=== PATIENT | female | born 1960 | race Caucasian/White ===

== ENCOUNTER 2019-11-24 20:45 | Emergency (ER) | payer MEDICAID, SELFPAY ==
[2019-11-24 20:46] VITALS: BP 149/83; PULSE 81; RESP 18; TEMP 36.6; O2SAT 97; BMI 36.9
--- NOTE | 2019-11-24 20:50 | PC.NURSE ---
Radiology notified of xrays.
--- NOTE | 2019-11-24 21:09 | HMH.EDUTC ---
[facility] [place] Disposition Clinical Impression: De Quervain's disease (tenosynovitis) Disposition: Home, Self-Care Condition on Discharge: Good Instructions: De Quervain Tenosynovitis, Carpal Tunnel Syndrome, Ibuprofen, DI for De Quervain's Tenosynovitis Additional Instructions: Wear wrist brace as discussed in [facility] Follow up with Family doctor for further treatment and evaluation and further testing may need testing not available in [facility] to look at your nerves and tendons in wrist Return if needed Alternate heat and ice 20min every 2 hours may help with pain Straight to ER if any life threatening symptoms Call Family doctor and make appointment and follow up in the next 48-72 hours if no improvement or immediately if any worsening of symptoms May call [facility] tomorrow for official reading of xray Referrals: Provider,Referral, MD [Primary Care Provider] - As needed Forms: Work/School Release Time of Disposition: 22:14 Medical Decision Making - Rodolfo Inquiry Pt receiving controlled substance: No Rodlofo was queried for this patient: No Vital Signs: 11/24/19 20:46 11/24/19 22:05 Temperature 97.9 F 97.9 F Temperature Source Oral Oral Pulse Rate 81 Pulse Rate [Radial] 81 Respiratory Rate 18 18 Blood Pressure 149/83 H Blood Pressure [Right Arm] 149/83 H Blood Pressure Mean [Right Arm] 105 Blood Pressure Source Automatic Cuff Blood Pressure Source [Right Arm] Automatic Cuff Blood Pressure Position Sitting Blood Pressure Position [Right Arm] Sitting 02 Sat by Pulse Oximetry 97 Oxygen Delivery Method Room Air Room Air Orders (Tests/Meds): ORDERS Category Date Time Status XR hand RT 2V Stat Exams 11/24/19 21:12 Taken XR wrist RT min 3V Stat Exams 11/24/19 21:12 Taken - Radiology Data #1 Image(s): Hand Image Reviewed: Yes I reviewed the patient's radiology image Preliminary Findings: No Fracture Seen #2 Image(s): Wrist Image Reviewed: Yes I reviewed the patient's radiology image Preliminary Findings: No Fracture Seen Medical Decision Narrative: Discussed treatment with steriods and patient declined State that if wrist brace didnt help she would follow up with family doctor for MRI or CT scan for further examination [facility] [place] HPI - General Stated complaint: pain R arm,hand Time Seen by Provider: 11/24/19 21:09 Mode of Arrival: Ambulatory Source of Information: Patient Limitations: No Limitations Description of Symptoms (Recalled from Triage Doc. by RN): woke up yesterday and her right thumb and wrist was hurting as the day went on she began to have pain up her arm to her elbow. Decided she would take a nap today and when she woke up her arm had some swelling HEENT Symptoms (Recalled from RN notes): No Resp Symptoms (Recalled from RN notes): No Skin Symptoms (Recalled from RN notes): Yes MS Symptoms (Recalled from RN notes): Yes Functional Status (Recalled from RN notes): wnl - History of Present Illness Provider Complaint: Patient states that she has a history of Carpal Tunnel. 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 States that she woke up yesterday with pain in her right thumb area States that pain continued throughout the day when she would use her hand States that today when she woke she was having pain in her right thumb again and was going up into her wrist and shooting pain through her forearm into her elbow States that she laid down to take a nap and when she woke up her wrist looked swollen so she came in to get it checked Denies known injury - Related Data Home Medications Medication Instructions Recorded Confirmed Aspirin [Aspir 81] 81 mg PO DAILY 04/11/18 08/25/18 Furosemide [Lasix 20mg tab] 20 mg PO DAILY 04/11/18 08/25/18 Insulin Glargine,Hum.rec.anlog 46 unit SQ HS 04/11/18 08/25/18 [Lantus Insulin 100units/mL 10mL vial] Isosorbide Dinitrate 30 mg PO DAILY 04/11/18 08/25/18 Liraglutide [Victoza 2-Estrada] 1.8 mg SQ DAILY 04/11/18 08/25/18
--- NOTE | 2019-11-24 21:12 | XR_ITS ---
PROCEDURE: XR WRIST RT MIN 3V CLINICAL INDICATION: pain in hand and wrist COMPARISON: [id number] XR wrist LT min 3V from 04/11/2018 FINDINGS: No fracture, dislocation, lytic change, or blastic change evident. No significant degenerative change IMPRESSION: No acute findings. Dictated by: Rod Parker MD 11/25/2019 05:50 Electronically signed by Rod Parker MD in [place] 11/25/2019 05:50
--- NOTE | 2019-11-24 21:12 | XR_ITS ---
PROCEDURE: XR HAND RT MIN 3V CLINICAL INDICATION: pain in hand and wrist COMPARISON: [id number] XR hand LT min 3V from 04/11/2018 FINDINGS: No fracture or dislocation. No lytic or blastic change. There is normal mineralization. There is some decrease in the joint space with minimal osteophyte formation at the DIP of digits 2 through 5 and at the PIP of digit 3 as well as interphalangeal joint of the thumb. No bony erosive process evident. Other findings:None. IMPRESSION: Mild osteoarthritic changes Dictated by: Rod Parker MD 11/25/2019 05:51 Electronically signed by Rod Parker MD in [place] 11/25/2019 05:51
[2019-11-24 22:05] VITALS: BP 149/83; PULSE 81; RESP 18; TEMP 36.6; O2SAT 97
== END 2019-11-24 22:18 | disposition home or self-care (01) ==
PROVIDERS: Emergency Provider Nurse Practitioner
DX: M65.4 Radial styloid tenosynovitis [de Quervain] (principal); E11.9 Type 2 diabetes mellitus without complications; I10 Essential (primary) hypertension; Z79.899 Other long term (current) drug therapy
CPT/HCPCS: 73110; 73120; 73130; 99201

== ENCOUNTER 2020-10-25 16:23 | Emergency (ER) | payer OTHER, SELFPAY ==
[2020-10-25 16:35] VITALS: BP 134/78; PULSE 88; RESP 17; TEMP 36.7; O2SAT 98; BMI 36.5
--- NOTE | 2020-10-25 16:37 | XR_ITS ---
PROCEDURE INFORMATION: Exam: XR Left Foot Exam date and time: 10/25/2020 4:37 PM Age: 60 years old Clinical indication: Patient HX: Left foot pain. Patient states it feels like there are sticks in her left foot for a week. No known injury. TECHNIQUE: Imaging protocol: XR Left foot. Views: 3 or more views. COMPARISON: No relevant prior studies available. FINDINGS: Bones/joints: Normal anatomic alignment. There is no evidence of acutely displaced fractures. There is no evidence of dislocation. No aggressive osseous lesions. Prominent plantar calcaneal spur and prominent posterior calcaneal enthesophyte. Soft tissues: There is no significant soft tissue swelling. IMPRESSION: Negative for acute skeletal pathology.
[2020-10-25 16:40] VITALS: BP 134/78; PULSE 88; RESP 17; TEMP 36.7; O2SAT 98; BMI 36.6
--- NOTE | 2020-10-25 17:34 | HMH.EDUTC ---
[facility] [place] Impression: Foot pain, left Disposition: Home, Self-Care Condition on Discharge: Good Instructions: DI for Foot Pain Additional Instructions: Follow up with Family Doctor if no improvement or any worsening of symptoms Return if needed Straight to ER if any life threatening symptoms Follow up with Podiatry for further evaluation if needed Referrals: Mary Watson [Primary Care Provider] - As needed Bree Montez DPM [Staff Physician] - Time of Disposition: 17:57 Medical Decision Making - Rodolfo Inquiry Pt receiving controlled substance: No Rodolfo was queried for this patient: No Vital Signs: 10/25/20 16:35 10/25/20 16:40 Temperature 98.0 F 98.0 F Temperature Source Oral Oral Pulse Rate [Right] 88 88 Respiratory Rate 17 17 Blood Pressure [Right Arm] 134/78 134/78 Blood Pressure Mean [Right Arm] 96 96 Blood Pressure Source [Right Arm] Automatic Cuff Blood Pressure Position [Right Arm] Sitting 02 Sat by Pulse Oximetry 98 98 Oxygen Delivery Method Room Air Room Air - Lab Data Lab Results 10/25/20 17:21: Uric Acid 4.1 - Radiology Data #1 Image(s): Foot/Toes Image Reviewed: Yes I have reviewed radiologist's interpretation IMPRESSION: Negative for acute skeletal pathology. [facility] [place] - General Stated complaint: left foot pain Time Seen by Provider: 10/25/20 17:34 Mode of Arrival: Ambulatory Source of Information: Patient Limitations: No Limitations Description of Symptoms (Recalled from Triage Doc. by RN): PATIENT C/O PARESTHESIA IN HER LEFT FOOT FOR THE LAST 8 DAYS. PT DENOES INJURY. PT REPORTS HX OF NEUROPATHY. PT AMBULATORY IN TRIAGE. HEENT Symptoms (Recalled from RN notes): No Resp Symptoms (Recalled from RN notes): No Skin Symptoms (Recalled from RN notes): No MS Symptoms (Recalled from RN notes): Yes Functional Status (Recalled from RN notes): WNL - History of Present Illness Provider Complaint: Patient states that she felt like she was walking on sticks for the last couple of days on her left foot States that she thought it may have been her shoes so she took them off and walked barefoot and still felt that way States that she has not done anything that she is aware of to hurt it but has been having pain on the inside of her foot. States that she has had history of gout and neuropathy but hasnt had either in awhile so today she came in to get it xray to see if she may have hurt it - Related Data Home Medications Medication Instructions Recorded Confirmed Aspirin [Aspir 81] 81 mg PO DAILY 04/11/18 08/25/18 Furosemide [Lasix 20mg tab] 20 mg PO DAILY 04/11/18 08/25/18 Insulin Glargine,Hum.rec.anlog 46 unit SQ HS 04/11/18 08/25/18 [Lantus Insulin 100units/mL 10mL vial] Isosorbide Dinitrate 30 mg PO DAILY 04/11/18 08/25/18 Liraglutide [Victoza 2-Estrada] 1.8 mg SQ DAILY 04/11/18 08/25/18 Metformin HCl [Fortamet] 1,000 mg PO DAILY 04/11/18 08/25/18 lisinopriL [Lisinopril 10mg Tab] 10 mg PO DAILY 04/11/18 08/25/18 Previous Rx's Medication Instructions Recorded Ibuprofen [Ibuprofen 600mg 600 mg PO Q6HP PRN #20 tab 04/11/18 Tablet] predniSONE [Prednisone 20mg 20 mg PO BID #10 tab 01/12/19 Tab] Allergies Allergy/AdvReac Type Severity Reaction Status Date / Time Beta-Blockers Allergy Verified 08/25/18 19:05 (Beta-Adrenergic Bloc - Worker's Comp Is this a Worker's Comp case?: No [facility] History - Hepatitis A Screen Drug use history?: No High risk sexual behaviors?: No History of sexually transmitted infection?: No Currently employed?: No Childcare worker?: No Do you have indoor plumbing?: Yes Do you have electricity?: Yes Attestation statement:: This patient has been screened for Hepatitis A risk factors. I have reviewed the patient's past medical history: Yes Medical History: Reports:: Diabetes Mellitus Type 2 Denies:: Cancer, Diabetes Mellitus Type 1, MRSA Amputation: No Fractures: No -
[2020-10-25 17:36] LABS: Uric Acid 4.1 mg/dl (2.5-6.2)
[2020-10-25 17:57] VITALS: BP 134/78; PULSE 88; RESP 17; TEMP 36.7; O2SAT 98
== END 2020-10-25 18:00 | disposition home or self-care (01) ==
PROVIDERS: Emergency Provider Nurse Practitioner; PCP Nurse Practitioner Family
DX: M79.672 Pain in left foot (principal); R20.0 Anesthesia of skin; E11.9 Type 2 diabetes mellitus without complications
CPT/HCPCS: 73630; 84550; 99202; G0463

== ENCOUNTER 2021-02-09 19:20 | Emergency (ER) | payer SELFPAY ==
[2021-02-09 19:31] VITALS: BP 106/70; PULSE 82; RESP 16; TEMP 37.1; O2SAT 96; BMI 36.9
--- NOTE | 2021-02-09 19:41 | XR_ITS ---
PROCEDURE INFORMATION: Exam: XR Left Hip Exam date and time: 02/09/2021 7:41 PM Age: 60 years old Clinical indication: Patient HX: Fall 2 weeks ago, left hip pain TECHNIQUE: Imaging protocol: XR Left hip. Views: 2 or 3 views hip with pelvis when performed. COMPARISON: No relevant prior studies available. FINDINGS: Crescentic ossified density adjacent to the lesser trochanter and irregular ossified density adjacent to the greater trochanter which may be sequela of prior trauma. Degenerative changes of the pubic symphysis. No acute fracture or dislocation. IMPRESSION: Chronic changes described above without definite acute process.
[2021-02-09 20:00] VITALS: BP 106/70; PULSE 82; RESP 16; TEMP 37.1; O2SAT 96; BMI 37.0
--- NOTE | 2021-02-09 20:29 | HMH.EDUTC ---
[facility] [place] Disposition Clinical Impression: Sciatica Qualifiers: Laterality: left Qualified Code(s): M54.32 - Sciatica, left side Disposition: Home, Self-Care Condition on Discharge: Good Instructions: Sciatica, DI for Sciatica Additional Instructions: *Etoloac christos 8 hours with meal as needed for pain/inflammation *Not additional anti-inflammatory like Ibuprofen motrin, aleve, advil with the above amount of Etodolac You can still take Tylenol every 4 hours as needed if you need something else for pain *Ice 20 minutes every 2 hours for the first 48 hours after the initial injury followed by moist heat every 20 minutes 3-4 times a day to affected area *Muscle relaxer every 12 hours as needed for muscle spasms but remember, it WILL cause drowsiness You cannot take it and drive, operate machinery or care for small children. *Keep this area active, no movement leads to more stiffness, However take it easy and avoid heavy lifting pushing or pulling *Follow up with you family doctor if no improvement for further treatment Follow up with Family Doctor if no improvement Return if needed Prescriptions: Etodolac 200 mg PO TID PRN #20 cap PRN Reason: Moderate Pain Transmission Status: Sent to [facility] methocarbamoL [Methocarbamol 500mg Tablet] 500 mg PO BID PRN #10 tab PRN Reason: Muscle Spasm Transmission Status: Pending to [facility] Referrals: Provider,Referral, MD [Primary Care Provider] - As needed Forms: Work/School Release Time of Disposition: 21:02 Medical Decision Making - Rodolfo Inquiry Pt receiving controlled substance: No Rodolfo was queried for this patient: No Vital Signs: 02/09/21 19:31 02/09/21 20:00 02/09/21 20:47 Temperature 98.8 F 98.8 F 98.8 F Temperature Source Oral Oral Pulse Rate 82 Pulse Rate [Right] 82 82 Respiratory Rate 16 16 16 Blood Pressure 106/70 L Blood Pressure [Right Arm] 106/70 L 106/70 L Blood Pressure Mean [Right Arm] 82 82 Blood Pressure Source [Right Arm] Automatic Cuff Blood Pressure Position [Right Arm] Sitting 02 Sat by Pulse Oximetry 96 96 Oxygen Delivery Method Room Air Orders (Tests/Meds): ED MEDICATIONS Discontinued Medications Generic Name Dose Route Start Last Admin Trade Name Freq PRN Reason Stop Dose Admin Amoxicillin 400 mg 02/09/21 21:00 Amoxicillin 250mg/5ml 100ml Oral Susp PO 02/09/21 21:01 ONCE ONE - Radiology Data #1 Image(s): Hip (left with pelvis) Image Reviewed: Yes I have reviewed radiologist's interpretation IMPRESSION: Chronic changes described above without definite acute process. Medical Decision Narrative: Patient state that she has taken ibuprofen in the past without complications or reactions [facility] [place] HPI - General Stated complaint: AO 01/31 fell injured L hip Time Seen by Provider: 02/09/21 20:29 Mode of Arrival: Ambulatory Source of Information: Patient Limitations: No Limitations Description of Symptoms (Recalled from Triage Doc. by RN): PATIENT STATES SHE FELL ON MONDAY AND STARTED HAVING LEFT HIP PAIN ON MONDAY HEENT Symptoms (Recalled from RN notes): No Resp Symptoms (Recalled from RN notes): No Skin Symptoms (Recalled from RN notes): No MS Symptoms (Recalled from RN notes): Yes Functional Status (Recalled from RN notes): WNL - History of Present Illness Provider Complaint: Patient states that she has been having pain on and off for awhile in her left hip that will go down buttock area in left upper leg States that about 2 weeks ago she fell and landed on her buttock area States that a couple days later she started having that pain again in her left buttock/hip area that radiates down into her her left upper leg Denies loss of control of bowel or bladder - Related Data Home Medications Medication Instructions Recorded Confirmed Aspirin [Aspir 81] 81 mg PO DAILY 04/11/18 08/25/18 Furosemide [Lasix 20mg tab] 20 mg PO DAILY 04/11/18 08/25/18 Insulin
[2021-02-09 20:47] VITALS: BP 106/70; PULSE 82; RESP 16; TEMP 37.1; O2SAT 96
== END 2021-02-09 21:17 | disposition home or self-care (01) ==
PROVIDERS: Emergency Provider Nurse Practitioner
DX: M54.32 Sciatica, left side (principal); I10 Essential (primary) hypertension; E11.9 Type 2 diabetes mellitus without complications; Z79.899 Other long term (current) drug therapy
CPT/HCPCS: 73502; 99202; G0463

== ENCOUNTER 2021-03-09 20:20 | Emergency (ER) | payer SELFPAY ==
[2021-03-09 20:22] VITALS: BP 117/79; PULSE 82; RESP 19; TEMP 36.4; O2SAT 96; BMI 36.5
--- NOTE | 2021-03-09 20:48 | XR_ITS ---
PROCEDURE INFORMATION: Exam: XR Right Foot Exam date and time: 03/09/2021 8:48 PM Age: 60 years old Clinical indication: Pain and injury or trauma; Blunt trauma; Toes; Right lesser toe(s); Patient HX: Stubbed toe on bed frame 3 days ago, pain TECHNIQUE: Imaging protocol: XR Right foot. Views: 3 or more views. COMPARISON: No relevant prior studies available. FINDINGS: Spiral fracture of the proximal phalanx of the 4th ray which is diastased 1 mm. IMPRESSION: Spiral fracture of the proximal phalanx of the 4th ray which is diastased 1 mm.
[2021-03-09 21:00] VITALS: BP 113/71; PULSE 88; O2SAT 96
--- NOTE | 2021-03-09 21:25 | HMH.EDLOEX ---
ED Disposition Clinical Impression: Toe fracture, right Qualifiers: Encounter type: initial encounter Toe: lesser toe Fracture type: closed Phalanx: proximal Fracture alignment: nondisplaced Qualified Code(s): S92.514A - Nondisplaced fracture of proximal phalanx of right lesser toe(s), initial encounter for closed fracture Disposition: Home, Self-Care Condition on Discharge: Good Instructions: DI for Toe Fracture Additional Instructions: call dr montez in am for follow up Referrals: Mary Watson [Primary Care Provider] - Bree Montez DPM [Staff Physician] - - Critical Care Critical Care Time: No Attestation: On 03/09/21, the high probability of a clinically significant, sudden or life threatening deterioration of the following system(s) required my full and direct attention, intervention and personal management. The time I documented below is in addition to time spent performing reported procedures but includes the following listed in this critical care notation. Medical Decision Making - Medical Records Medical records reviewed: Yes: I reviewed the patient's medical records. - Rodolfo Inquiry Pt receiving controlled substance: No Vital Signs: 03/09/21 20:22 Temperature 97.6 F Temperature Source Oral Pulse Rate [Right] 82 Respiratory Rate 19 Blood Pressure [Right Arm] 117/79 Blood Pressure Mean [Right Arm] 91 Blood Pressure Source [Right Arm] Automatic Cuff 02 Sat by Pulse Oximetry 96 Oxygen Delivery Method Room Air - Lab Data Lab results reviewed: Yes: I reviewed the patient's lab results. - Radiology Data #1 Image(s): Foot/Toes Image Reviewed: Yes I have reviewed radiologist's interpretation Preliminary Findings: Abnormal (fx toe ) - Physician Consults Physician Consulted: jayden Reason -: Pt condition Medical Decision Narrative: has fx toe and will be splinted and refer to dr montez Lower Extremity Injury HPI - General Chief Complaint: Extremity Injury, Lower Stated Complaint: AO 03/06 injured R little toe Time Seen by Provider: 03/09/21 21:00 Mode of Arrival: Family Vehicle Source of Information: Patient, Medical Record Limitations: No Limitations Description of Symptoms (Recalled from ER Triage Doc. by RN): Pt kicked her bed-frame on Monday night on the right foot. Pt states she hit primarily the 4th toe, although there is bruising to all 5 toes. Now, pt is c/o pain to bottom of her foot and trouble wearing her shoes. Peripheral pulses 2+ and DAMAGE INSIDE ADJUSTER < 3sec. - History of Present Illness HPI Narrative: acute injury to rt foot with pain and swelling and ecchymosis - pain with wt bearing MD complaint: foot injury Onset (ago): day(s) Injury: Right: foot Type of Injury: blunt Place: home Severity: moderate Context: direct blow Associated symptoms: swelling, able to partially bear weight Other symptoms: none - Related Data Home Medications Medication Instructions Recorded Confirmed Aspirin [Aspir 81] 81 mg PO DAILY 04/11/18 08/25/18 Furosemide [Lasix 20mg tab] 20 mg PO DAILY 04/11/18 08/25/18 Insulin Glargine,Hum.rec.anlog 46 unit SQ HS 04/11/18 08/25/18 [Lantus Insulin 100units/mL 10mL vial] Isosorbide Dinitrate 30 mg PO DAILY 04/11/18 08/25/18 Liraglutide [Victoza 2-Estrada] 1.8 mg SQ DAILY 04/11/18 08/25/18 Metformin HCl [Fortamet] 1,000 mg PO DAILY 04/11/18 08/25/18 lisinopriL [Lisinopril 10mg Tab] 10 mg PO DAILY 04/11/18 08/25/18 Previous Rx's Medication Instructions Recorded Ibuprofen [Ibuprofen 600mg 600 mg PO Q6HP PRN #20 tab 04/11/18 Tablet] predniSONE [Prednisone 20mg 20 mg PO BID #10 tab 01/12/19 Tab] Etodolac 200 mg PO TID PRN #20 cap 02/09/21 methocarbamoL [Methocarbamol 500mg 500 mg PO BID PRN #10 tab 02/09/21 Tablet] Allergies Allergy/AdvReac Type Severity Reaction Status Date / Time Beta-Blockers Allergy Verified 08/25/18 19:05 (Beta-Adrenergic Bloc [facility] History - Hepatitis A Screen Drug
[2021-03-09 21:30] VITALS: BP 110/85; PULSE 86; O2SAT 95
[2021-03-09 22:15] VITALS: BP 105/75; PULSE 85; RESP 15; O2SAT 96
--- NOTE | 2021-03-09 22:27 | PC.NURSE ---
2148- Anderson dressing and post op shoe applied per Dr Parmar
[2021-03-09 22:30] VITALS: BP 105/75; PULSE 85; RESP 15; TEMP 36.8; O2SAT 96
== END 2021-03-09 22:25 | disposition home or self-care (01) ==
PROVIDERS: Emergency Provider Emergency Medicine; PCP Nurse Practitioner Family
DX: S92.514A Nondisplaced fracture of proximal phalanx of right lesser toe(s), initial encounter for closed fracture (principal); W22.09XA Striking against other stationary object, initial encounter; E11.9 Type 2 diabetes mellitus without complications
CPT/HCPCS: 73630; 99283

== ENCOUNTER → 2021-03-12 09:11 | Outpatient (CLI) | payer SELFPAY ==
--- NOTE | 2021-03-12 09:15 | XR_ITS ---
PROCEDURE: XR FOOT WT BEARING RT 3V CLINICAL INDICATION: fracture evaluation COMPARISON: CR XR FOOT LT MIN 3V from 10/25/2020 CR XR FOOT RT MIN 3V from 03/09/2021 FINDINGS: Nondisplaced oblique fracture involves the proximal phalanx of the 4th toe overall not significantly changed. The joint spaces are well-preserved. No significant degenerative/arthritic changes. No erosive changes evident. Other findings:Mildly prominent calcaneal spur with mild pes planus IMPRESSION: No change nondisplaced midshaft fracture proximal phalanx 4th toe Dictated by: Rod Parker MD 03/12/2021 09:56 Rod Parker MD in [facility] 03/12/2021 09:56
== END ==
PROVIDERS: Visit Provider Podiatrist
DX: S92.911A Unspecified fracture of right toe(s), initial encounter for closed fracture (principal)
CPT/HCPCS: 73630

== ENCOUNTER → 2021-05-14 16:01 | Outpatient (CLI) | payer SELFPAY ==
--- NOTE | 2021-05-14 16:05 | XR_ITS ---
PROCEDURE: XR FOOT WT BEARING RT 3V CLINICAL INDICATION: fracture evaluation COMPARISON: CR XR FOOT LT MIN 3V from 10/25/2020 CR XR FOOT RT MIN 3V from 03/09/2021 CR XR FOOT WT BEARING RT 3V from 03/12/2021 FINDINGS: There is a healing fracture involving the midshaft the proximal 4th and 5th phalanges with developing callus formation. There is good alignment. Pes planus with prominent calcaneal spur and degenerative changes of the midfoot. IMPRESSION: Healing 4th and 5th nondisplaced proximal phalangeal fractures. Dictated by: Rod Parker MD 05/14/2021 17:00 Rod Parker MD in [facility] 05/14/2021 17:00
== END ==
LOC: RAD 16:03
PROVIDERS: PCP Nurse Practitioner Family; Visit Provider Nurse Practitioner
DX: S92.501A Displaced unspecified fracture of right lesser toe(s), initial encounter for closed fracture (principal); S92.514A Nondisplaced fracture of proximal phalanx of right lesser toe(s), initial encounter for closed fracture; T14.8XXA Other injury of unspecified body region, initial encounter
CPT/HCPCS: 73630

== ENCOUNTER 2022-10-09 18:49 | Emergency (ER) | payer BC, SELFPAY ==
[2022-10-09 18:51] VITALS: BP 126/89; PULSE 88; RESP 14; TEMP 37.1; O2SAT 98; BMI 37.0
--- NOTE | 2022-10-09 19:16 | PC.NURSE ---
Dr. Arguelles at [facility]
--- NOTE | 2022-10-09 19:22 | XR_ITS ---
PROCEDURE INFORMATION: Exam: XR Cervical Spine Exam date and time: 10/09/2022 7:27 PM Age: 62 years old Clinical indication: Neck pain TECHNIQUE: Imaging protocol: Radiologic exam of the cervical spine. Views: 2 or 3 views. COMPARISON: JOHANNY [id number] [id number] [id number] 10/10/2015 8:33 PM FINDINGS: Bones/joints: Mild degenerative changes. No acute fracture. Normal alignment. Soft tissues: Unremarkable. IMPRESSION: No acute findings.
--- NOTE | 2022-10-09 21:04 | HMH.EDGENADL ---
Discharge Plan Disposition Chief Complaint: Neck Pain/Injury Prescriptions Prescriptions: New hydrocodone-acetaminophen 5-325 mg tablet 1 tab PO Q8H PRN (Reason: pain) Qty: 10 0RF methocarbamol [Methocarbamol] 750 mg tablet 750 mg PO Q6 PRN (Reason: Muscle Spasm) Qty: 30 0RF No Action acetaminophen-codeine 300-15 mg tablet 1 tab PO BID PRN (Reason: pain) 3 Days Qty: 6 0RF prednisone 20 MG tablet 20 mg PO BID Qty: 10 0RF methocarbamol 500 MG tablet 500 mg PO BID PRN (Reason: Muscle Spasm) Qty: 10 0RF etodolac 200 MG capsule 200 mg PO TID PRN (Reason: Moderate Pain) Qty: 20 0RF insulin glargine 100 UNIT/ML solution 46 unit SQ HS aspirin 81 MG tablet,delayed release (DR/EC) 81 mg PO DAILY isosorbide dinitrate 30 MG tablet 30 mg PO DAILY lisinopril 10 MG tablet 10 mg PO DAILY furosemide 20 MG tablet 20 mg PO DAILY metformin 1,000 MG tablet extended release 24hr 1,000 mg PO DAILY liraglutide 0.6 MG/0.1 ML pen injector 1.8 mg SQ DAILY ibuprofen 600 MG tablet 600 mg PO Q6HP PRN (Reason: Moderate Pain) Qty: 20 0RF Referrals Follow up/Referrals: Provider,Referral, MD [Primary Care Provider] - See instructions Instructions Patient Instructions: DI for Neck Pain Discharge ED Provider: Stanley Arguelles General Adult HPI General Chief complaint: Neck Pain/Injury Stated complaint: Pain right side of head/neck Time Seen by Provider: 10/09/22 19:00 Mode of Arrival: Ambulatory Source of Information: Patient Limitations: No Limitations Description of Symptoms (Recalled from ER Triage Doc. by RN): pt c/o rt neck pain radiating to shoulder blades x 2 weeks. pt seen pcp and given muscle relaxer with no relief History of Present Illness HPI narrative: Patient is a 62-year-old female with past medical history of sciatica who presents with right-sided neck pain. She states that for the last 2 weeks she has been having pain radiating from her neck to her shoulder blades. She is also started noticed some numbness over her thumb as well. She saw her PCP who gave her a muscle relaxer but this did not help. She denies any trauma. She denies any numbness or tingling into the other arm. She denies any chest pain. She says that her symptoms are worse with movement. Related Data Home Medications Medication Instructions Recorded Confirmed aspirin 81 mg tablet,delayed 81 mg PO DAILY HEART HEALTH 04/11/18 03/12/21 release furosemide 20 mg tablet 20 mg PO DAILY Fluid 04/11/18 03/12/21 insulin glargine 100 unit/mL 46 unit SQ HS DM 04/11/18 03/12/21 subcutaneous solution isosorbide dinitrate 30 mg tablet 30 mg PO DAILY HTN 04/11/18 03/12/21 liraglutide 0.6 mg/0.1 mL (18 mg/3 1.8 mg SQ DAILY DM 04/11/18 03/12/21 mL) subcutaneous pen injector lisinopril 10 mg tablet 10 mg PO DAILY HTN 04/11/18 03/12/21 metformin 1,000 mg tablet,extended 1,000 mg PO DAILY Diabetes 04/11/18 03/12/21 release 24hr Previous Rx's Medication Instructions Recorded ibuprofen 600 mg tablet 600 mg PO Q6HP PRN Moderate Pain 04/11/18 #20 tabs prednisone 20 mg tablet 20 mg PO BID #10 tabs 01/12/19 etodolac 200 mg capsule 200 mg PO TID PRN Moderate Pain 02/09/21 #20 caps methocarbamol 500 mg tablet 500 mg PO BID PRN Muscle Spasm #10 02/09/21 tabs acetaminophen 300 mg-codeine 15 mg 1 tab PO BID PRN pain 3 days #6 03/12/21 tablet tabs hydrocodone 5 mg-acetaminophen 325 1 tab PO Q8H PRN pain #10 tabs 10/09/22 mg tablet methocarbamol 750 mg tablet 750 mg PO Q6 PRN Muscle Spasm #30 10/09/22 tabs Allergies Allergy/AdvReac Type Severity Reaction Status Date / Time Beta-Blockers Allergy Verified 03/12/21 09:53 (Beta-Adrenergic Bloc [facility] Disclaimer: The information contained in this section may have been updated after the patient was seen, as this information can be updated by other users. Social History Smoking Status: Never smoker
[2022-10-09 21:21] VITALS: BP 121/76; PULSE 79; RESP 14; TEMP 37.1; O2SAT 98
== END 2022-10-09 21:27 | disposition home or self-care (01) ==
PROVIDERS: Emergency Provider Student in an Organized Health Care Education/Training Program
DX: R51.9 Headache, unspecified (principal); M54.2 Cervicalgia
CPT/HCPCS: 72040; 99283; 99284

== ENCOUNTER 2022-12-29 22:39 | Emergency (ER) | payer BC, SELFPAY ==
[2022-12-29 22:40] VITALS: BP 137/73; PULSE 74; RESP 18; TEMP 36.6; O2SAT 98; BMI 36.2
--- NOTE | 2022-12-29 23:17 | XR_ITS ---
PROCEDURE INFORMATION: Exam: XR Left Foot Exam date and time: 12/29/2022 11:38 PM Age: 62 years old Clinical indication: Injury or trauma; Other: Stubbed toes; Blunt trauma; Foot and toes; Right lesser toe(s); Patient HX: States kicked something, C/O pain in right toes. Bruising noted; Additional info: Foot pain TECHNIQUE: Imaging protocol: Radiologic exam of the left foot. Views: 3 or more views. COMPARISON: CR XR FOOT LT MIN 3V 10/25/2020 4:36 PM FINDINGS: Bones/joints: Minimally displaced 5th proximal phalangeal base intra-articular fracture. No dislocation. Soft tissues: Normal. IMPRESSION: 5th proximal phalangeal base fracture
--- NOTE | 2022-12-30 01:28 | HMH.EDLOEX ---
Discharge Plan Disposition Patient Disposition: Home, Self-Care Condition: Good Prescriptions Prescriptions: No Action acetaminophen-codeine 300-15 mg tablet 1 tab PO BID PRN (Reason: pain) 3 Days Qty: 6 0RF prednisone 20 MG tablet 20 mg PO BID Qty: 10 0RF methocarbamol 500 MG tablet 500 mg PO BID PRN (Reason: Muscle Spasm) Qty: 10 0RF methocarbamol [Methocarbamol] 750 mg tablet 750 mg PO Q6 PRN (Reason: Muscle Spasm) Qty: 30 0RF insulin glargine 100 UNIT/ML solution 46 unit SQ HS aspirin 81 MG tablet,delayed release (DR/EC) 81 mg PO DAILY isosorbide dinitrate 30 MG tablet 30 mg PO DAILY lisinopril 10 MG tablet 10 mg PO DAILY furosemide 20 MG tablet 20 mg PO DAILY metformin 1,000 MG tablet extended release 24hr 1,000 mg PO DAILY liraglutide 0.6 MG/0.1 ML pen injector 1.8 mg SQ DAILY ibuprofen 600 MG tablet 600 mg PO Q6HP PRN (Reason: Moderate Pain) Qty: 20 0RF Referrals Follow up/Referrals: Provider,Referral, [Primary Care Provider] - See instructions Bree Montez DPM [Staff Physician] - See instructions Clinical Impressions Clinical Impression: Fracture of toe of left foot Stand Alone Forms Stand Alone Forms: Work/School Release Instructions Patient Instructions: DI for Toe Fracture Discharge ED Provider: Ghulam (ED)Goldy Lower Extremity Injury HPI General Chief Complaint: Extremity Injury, Lower Stated Complaint: AO 7/6 LT ft toe injury Time Seen by Provider: 12/30/22 00:00 Mode of Arrival: Ambulatory Source of Information: Patient and Medical Record Limitations: No Limitations Description of Symptoms (Recalled from ER Triage Doc. by RN): Pt stubbed her left foot on bed this morning, complains of pain in 3rd 4th and 5th phalanges. toes are bruised, palpable pedal pulses. History of Present Illness HPI Narrative: acute injury lt foot - - inc pain and bruising complaint: foot injury Onset (ago): hour(s) Injury: Left: foot and toes Type of Injury: blunt Place: home Severity: moderate Exacerbating factors: weight bearing and movement Context: direct blow Associated symptoms: able to partially bear weight Other symptoms: none Related Data Home Medications Medication Instructions Recorded Confirmed aspirin 81 mg tablet,delayed 81 mg PO DAILY HEART HEALTH 04/11/18 03/12/21 release furosemide 20 mg tablet 20 mg PO DAILY Fluid 04/11/18 03/12/21 insulin glargine 100 unit/mL 46 unit SQ HS DM 04/11/18 03/12/21 subcutaneous solution isosorbide dinitrate 30 mg tablet 30 mg PO DAILY HTN 04/11/18 03/12/21 liraglutide 0.6 mg/0.1 mL (18 mg/3 1.8 mg SQ DAILY DM 04/11/18 03/12/21 mL) subcutaneous pen injector lisinopril 10 mg tablet 10 mg PO DAILY HTN 04/11/18 03/12/21 metformin 1,000 mg tablet,extended 1,000 mg PO DAILY Diabetes 04/11/18 03/12/21 release 24hr Previous Rx's Medication Instructions Recorded ibuprofen 600 mg tablet 600 mg PO Q6HP PRN Moderate Pain 04/11/18 #20 tabs prednisone 20 mg tablet 20 mg PO BID #10 tabs 01/12/19 methocarbamol 500 mg tablet 500 mg PO BID PRN Muscle Spasm #10 02/09/21 tabs acetaminophen 300 mg-codeine 15 mg 1 tab PO BID PRN pain 3 days #6 03/12/21 tablet tabs methocarbamol 750 mg tablet 750 mg PO Q6 PRN Muscle Spasm #30 10/09/22 tabs Allergies Allergy/AdvReac Type Severity Reaction Status Date / Time Beta-Blockers Allergy Verified 03/12/21 09:53 (Beta-Adrenergic Bloc [facility] Disclaimer: The information contained in this section may have been updated after the patient was seen, as this information can be updated by other users. Social History Smoking Status: Former smoker second hand exposure: No alcohol intake: never current occupational status: other Travel in the last 8 weeks: None housing: house ROS Obtained: Yes All systems reviewed & no additional complaints except as documented Physical Exam General Genera
[2022-12-30 01:36] VITALS: BP 134/72; PULSE 72; RESP 16; TEMP 36.4
== END 2022-12-30 01:37 | disposition home or self-care (01) ==
LOC: ER 23:00
PROVIDERS: Emergency Provider Emergency Medicine
DX: S92.512A Displaced fracture of proximal phalanx of left lesser toe(s), initial encounter for closed fracture (principal); Z87.891 Personal history of nicotine dependence; W22.8XXA Striking against or struck by other objects, initial encounter
CPT/HCPCS: 73630; 96372; 99283; 99284

== ENCOUNTER 2023-04-01 22:54 | Emergency (ER) | payer BC, SELFPAY ==
[2023-04-01 22:55] VITALS: BP 141/76; PULSE 71; RESP 20; TEMP 36.5; O2SAT 96; BMI 35.1
[2023-04-01 23:30] VITALS: BP 144/79; PULSE 72; RESP 18; O2SAT 95
[2023-04-02] VITALS: BP 129/74; PULSE 64; RESP 18; O2SAT 95
[2023-04-02 00:30] VITALS: BP 145/86; PULSE 68; RESP 20; O2SAT 96
--- NOTE | 2023-04-02 00:47 | HMH.EDGENADL ---
Discharge Plan Disposition Patient Disposition: Home, Self-Care Prescriptions Prescriptions: New methocarbamol 500 mg tablet 1,000 mg PO Q6H PRN (Reason: pain) Qty: 60 0RF cyclobenzaprine 5 mg tablet 5 mg PO TID PRN (Reason: muscle spasm) Qty: 20 0RF No Action acetaminophen-codeine 300-15 mg tablet 1 tab PO BID PRN (Reason: pain) 3 Days Qty: 6 0RF prednisone 20 MG tablet 20 mg PO BID Qty: 10 0RF methocarbamol [Methocarbamol] 750 mg tablet 750 mg PO Q6 PRN (Reason: Muscle Spasm) Qty: 30 0RF insulin glargine 100 UNIT/ML solution 46 unit SQ HS aspirin 81 MG tablet,delayed release (DR/EC) 81 mg PO DAILY isosorbide dinitrate 30 MG tablet 30 mg PO DAILY lisinopril 10 MG tablet 10 mg PO DAILY furosemide 20 MG tablet 20 mg PO DAILY metformin 1,000 MG tablet extended release 24hr 1,000 mg PO DAILY liraglutide 0.6 MG/0.1 ML pen injector 1.8 mg SQ DAILY ibuprofen 600 MG tablet 600 mg PO Q6HP PRN (Reason: Moderate Pain) Qty: 20 0RF Referrals Follow up/Referrals: Provider,Referral, MD [Primary Care Provider] - See instructions Activity Restrictions/Add. Instructions Additional Instructions/Restrictions: Please follow-up with your primary care provider. Please return to the emergency department if you develop any new or worsening symptoms or become concerned for your health. Please take muscle relaxers as prescribed as needed. Avoid taking both of them at the same time. Do not drive until you see how they affect you. Clinical Impressions Clinical Impression: Arm pain Qualifiers: Laterality: right Qualified Code(s): M79.601 - Pain in right arm Discharge ED Provider: Kris De Los Santos Adult [facility] General Chief complaint: PAIN Stated complaint: neck pain, wrist pain Time Seen by Provider: 04/01/23 22:59 Mode of Arrival: Ambulatory Source of Information: Patient Limitations: No Limitations Description of Symptoms (Recalled from ER Triage Doc. by RN): Patient reports pinched nerve that causes bilateral neck pain that radiates down both arms to her carpal tunnel , indicating her wrist area. Patient reports that this pain started yesterday and tried to take a muscle relaxer and a tylenol 3 yesterday without relief. Today she took motrin this AM, no further medications today to treat the pain. Patient denies new injury, denies shortness of breath, denies chest pain. History of Present Illness HPI narrative: 62-year-old female presents with exacerbation of her chronic right upper extremity pain. She reports that she has been diagnosed with a pinched nerve, and had previously been prescribed muscle relaxers but ran out a few days ago. Patient also reports chronic carpal tunnel. She denies any recent trauma. Denies any new weakness numbness. She reports the pain extends from the neck down the right upper extremity. It is consistent with prior. She reports that she has had imaging in the past and was diagnosed with this pinched nerve. Related Data Home Medications Medication Instructions Recorded Confirmed aspirin 81 mg tablet,delayed 81 mg PO DAILY HEART HEALTH 04/11/18 04/02/23 release furosemide 20 mg tablet 20 mg PO DAILY Fluid 04/11/18 04/02/23 insulin glargine 100 unit/mL 46 unit SQ HS DM 04/11/18 04/02/23 subcutaneous solution isosorbide dinitrate 30 mg tablet 30 mg PO DAILY HTN 04/11/18 04/02/23 liraglutide 0.6 mg/0.1 mL (18 mg/3 1.8 mg SQ DAILY DM 04/11/18 04/02/23 mL) subcutaneous pen injector lisinopril 10 mg tablet 10 mg PO DAILY HTN 04/11/18 04/02/23 metformin 1,000 mg tablet,extended 1,000 mg PO DAILY Diabetes 04/11/18 04/02/23 release 24hr Previous Rx's Medication Instructions Recorded ibuprofen 600 mg tablet 600 mg PO Q6HP PRN Moderate Pain 04/11/18 #20 tabs prednisone 20 mg tablet 20 mg PO BID #10 tabs 01/12/19 acetaminophen 300 mg-codeine 15 mg 1 tab PO BID PRN pain 3 days #6 03/12/21 tablet tabs met
--- NOTE | 2023-04-02 00:50 | PC.NURSE ---
Patient reports continued pain 01/02. Provider notified. Patient assisted out of bed to use the restroom. Ambulated without difficulty, steady gait. No further needs expressed at this time. Bed in low, locked position, call light within reach.
[2023-04-02 01:31] VITALS: BP 161/87; PULSE 67; RESP 18; TEMP 36.5; O2SAT 96
== END 2023-04-02 01:39 | disposition home or self-care (01) ==
PROVIDERS: Emergency Provider Emergency Medicine
DX: M54.12 Radiculopathy, cervical region; Z87.891 Personal history of nicotine dependence; M79.601 Pain in right arm
CPT/HCPCS: 99283

== ENCOUNTER 2024-09-02 20:44 | Emergency (ER) | payer BC, SELFPAY ==
[2024-09-02 20:47] VITALS: BP 151/85; PULSE 87; RESP 18; TEMP 36.8; O2SAT 100; BMI 33.2
[2024-09-02 21:30] VITALS: BP 141/88; PULSE 79; O2SAT 96
[2024-09-02 21:53] VITALS: BP 141/86; PULSE 79; O2SAT 96
[2024-09-02] MEDS: predniSONE 20MG TAB 40 MG PO (22:22)
[2024-09-02] MEDS: IBUPROFEN 400 MG TABLET 800 MG PO (22:22)
[2024-09-02] MEDS: METHOCARBAMOL 500MG TABLET 500 MG PO (22:22)
[2024-09-02] MEDS: ACETAMINOPHEN 500MG TAB 1000 MG PO (22:22)
[2024-09-02] MEDS: LIDOCAINE 5% TRANSDERMAL PATCH 1 EACH TP (22:23)
[2024-09-02 22:33] VITALS: BP 141/86; PULSE 74; RESP 18; TEMP 36.8; O2SAT 95
--- NOTE | 2024-09-02 23:23 | ED_ITS ---
Discharge Plan Disposition Patient Disposition: Home, Self-Care Condition: Good Prescriptions Prescriptions: New methocarbamol 500 mg tablet 1,000 mg PO Q8H PRN (Reason: pain) Qty: 20 0RF prednisone 20 mg tablet 40 mg PO DAILY 4 Days Qty: 8 0RF No Action acetaminophen-codeine 300-15 mg tablet 1 tab PO BID PRN (Reason: pain) 3 Days Qty: 6 0RF prednisone 20 MG tablet 20 mg PO BID Qty: 10 0RF methocarbamol [Methocarbamol] 750 mg tablet 750 mg PO Q6 PRN (Reason: Muscle Spasm) Qty: 30 0RF insulin glargine 100 UNIT/ML solution 46 unit SQ HS aspirin 81 MG tablet,delayed release (DR/EC) 81 mg PO DAILY isosorbide dinitrate 30 MG tablet 30 mg PO DAILY lisinopril 10 MG tablet 10 mg PO DAILY furosemide 20 MG tablet 20 mg PO DAILY metformin 1,000 MG tablet extended release 24hr 1,000 mg PO DAILY liraglutide 0.6 MG/0.1 ML pen injector 1.8 mg SQ DAILY ibuprofen 600 MG tablet 600 mg PO Q6HP PRN (Reason: Moderate Pain) Qty: 20 0RF methocarbamol 500 mg tablet 1,000 mg PO Q6H PRN (Reason: pain) Qty: 60 0RF cyclobenzaprine 5 mg tablet 5 mg PO TID PRN (Reason: muscle spasm) Qty: 20 0RF Referrals Follow up/Referrals: Ivonne Ferreira APRN [Primary Care Provider] - See instructions Fran Salvador DO [Staff Physician] - See instructions Activity Restrictions/Add. Instructions Additional Instructions/Restrictions: You were evaluated in the emergency department today. As we discussed, we feel your symptoms are likely result of radiculopathy/pinched nerve versus a tendinopathy/inflammation of the tendon. Please follow-up closely with orthopedics as well as with your primary care provider. Call their offices to schedule an appointment. 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 You may also take Tylenol and ibuprofen every 4-6 hours as needed for pain. Return to the emergency department for new or worsening symptoms. Clinical Impressions Clinical Impression: Arm pain, left Instructions Patient Instructions: DI for Cervical Radiculopathy, DI for Arm Pain, DI for Neck Pain Print Language Print Language: [place] Discharge ED Provider: Reyna Buckley General Adult HPI General Chief complaint: Neck Pain/Injury Stated complaint: left arm pain, no injury Time Seen by Provider: 09/02/24 21:38 Mode of Arrival: Ambulatory Source of Information: Patient Description of Symptoms (Recalled from ER Triage Doc. by RN): pt presents with c/o left arm pain x 1 month. States pain is worth worse with movement History of Present Illness HPI narrative: This patient is a 64-year-old female with a history of cervical disc herniations, cervical radiculopathy, carpal tunnel, de Quervain's tenosynovitis presenting to the emergency department for evaluation concern for left arm pain for a month. She notes that initially was just her upper arm and is worse with any sort of movements. She states that her arm is still painful she has to walk her arm up her back to fasten and unfasten her bra. Now today she started having some pain in her forearm as well, especially when she moves her wrist/thumb. This prompted ED evaluation. 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 No recent falls or traumatic injuries, no numbness, tingling, or other concerns. No chest pain or shortness of breath. Related Data Home Medications ?Medication ?Instructions ?Recorded ?Confirmed aspirin 81 mg tablet,delayed 81 mg PO DAILY HEART HEALTH 04/11/18 04/02/23 release furosemide 20 mg tablet 20 mg PO DAILY Fluid 04/11/18 04/02/23 insulin glargine 100 unit/mL 46 unit SQ HS DM 04/11/18 04/02/23 subcutaneous solution isosorbide dinitrate 30 mg tablet 30 mg PO DAILY HTN 04/11/18 04/02/23 liraglutide 0.6 mg/0.1 mL (18 mg/3 1.8 mg SQ DAILY DM 04/11/18 04/02/23 mL) subcutaneous pen injector lisinopril 10 mg tablet 10 mg PO DAILY HTN 04/11/18 04/02/23 metformin 1,000 mg tablet,extended 1,000 mg PO DAILY Diabetes 04/11/18 04/02/23 release 24hr (osmotic) Previous Rx's ?Medication ?Instructions ?Recorded ibuprofen 600 mg tablet 600 mg PO Q6HP PRN Moderate Pain 04/11/18 #20 tabs prednisone 20 mg tablet 20 mg PO BID #10 tabs 01/12/19 acetaminophen 300 mg-codeine 15 mg 1 tab PO BID PRN pain 3 days #6 03/12/21 tablet tabs methocarbamol 750 mg tablet 750 mg PO Q6 PRN Muscle Spasm #30 10/09/22 tabs cyclobenzaprine 5 mg tablet 5 mg PO TID PRN muscle spasm #20 04/02/23 tabs methocarbamol 500 mg tablet 1,000 mg (2 x 500 mg) PO Q6H PRN 04/02/23 pain #60 tabs methocarbamol 500 mg tablet 1,000 mg (2 x 500 mg) PO Q8H PRN 09/02/24 pain #20 tabs prednisone 20 mg tablet 40 mg (2 x 20 mg) PO DAILY 4 days 09/02/24 #8 tabs Allergies Allergy/AdvReac Type Severity Reaction Status Date / Time Beta-Blockers Allergy Verified 03/12/21 09:53 (Beta-Adrenergic Bloc [facility] Disclaimer: The information contained in this section may have been updated after the patient was seen, as this information can be updated by other users. Social History Smoking Status: Former smoker second hand exposure: No alcohol intake: never current occupational status: other Travel in the last 8 weeks: None housing: house Have you lived/traveled outside [place] in past 30 days?: No Contact w/someone who lives/traveled outside [place] past 30 days?: No Exposure to someone with infectious disease in past 14 days?: No Do you have a fever (greater than 100.4 F or 38 C)?: No Have you tested positive for COVID-19: No Exposed to someone with COVID-19 in past 14 days?: No Do you have a sore throat?: No Do you have a cough?: No Do you have any weakness?: No Do you have any diarrhea?: No Are you experiencing any unusual bleeding?: No Do you have any muscle aches/pain?: No Do you have any abdominal pain?: No Are you experiencing loss of taste or smell?: No Other Medical History Have you received the Flu Vaccine for this season: Yes Have you received the Pneumonia Vaccine: No ROS Obtained: Yes All systems reviewed & no additional complaints except as documented Physical Exam General General appearance: alert and in no apparent distress Head Head exam: atraumatic and normocephalic Eye Eye exam: Present normal appearance, PERRL and EOMI ENT ENT exam: Present normal exam, normal oropharynx, mucous membranes moist and normal external ear exam Neck Neck exam: Present normal inspection, full ROM and trachea midline; Absent tenderness Chest Chest inspection: Present normal inspection and symmetric chest wall rise; Absent tenderness Respiratory Respiratory exam: Present normal lung sounds bilaterally; Absent respiratory distress, wheezes, stridor or accessory muscle use Cardiovascular Cardiovascular exam: Present regular rate and normal rhythm Abdominal Exam Abdominal exam: Present soft; Absent distention, tenderness or guarding Extremities Exam Extremities exam: Present normal capillary refill and other (Limited range of motion of the left shoulder secondary to pain. Tenderness palpation over the left bicep and the left radial forearm. No obvious deformity. No skin changes. Neurovascularly intact distally with full intact range of motion of all the digits of her hand); Absent tenderness or edema Back Exam Back exam: Present normal inspection and full ROM; Absent tenderness Neurological Exam Neurological exam: Present alert, oriented X3, CN II-XII intact and normal gait; Absent motor sensory deficit Psychiatric Psychiatric exam: Present normal affect and normal mood Skin Skin exam: Present warm and dry Medical Decision Making Medical Records Medical records reviewed: Yes I reviewed the patient's medical records. Screening: Per USPSTF and CDC recommendations, given the prevalence of disease in our region, it is our hospital?s policy to screen for HIV and viral Hepatitis for all patients aged 18 and over and those with ongoing risk factors. Rodolfo Inquiry Pt receiving controlled substance: No Vital Signs: 09/02/24 20:47 09/02/24 21:30 09/02/24 21:53 Temperature 98.3 F Temperature Source Oral Pulse Rate 79 79 Pulse Rate [Right] 87 Respiratory Rate 18 Blood Pressure 141/88 H 141/86 H Blood Pressure [Right Arm] 151/85 H Blood Pressure Mean [Right Arm] 107 Blood Pressure Source Blood Pressure Source [Right Arm] Automatic Cuff Blood Pressure Position Blood Pressure Position [Right Arm] Sitting 02 Sat by Pulse Oximetry 100 96 96 Oxygen Delivery Method Room Air 09/02/24 22:33 Temperature 98.3 F Temperature Source Oral Pulse Rate 74 Pulse Rate [Right] Respiratory Rate 18 Blood Pressure 141/86 H Blood Pressure [Right Arm] Blood Pressure Mean [Right Arm] Blood Pressure Source Automatic Cuff Blood Pressure Source [Right Arm] Blood Pressure Position Sitting Blood Pressure Position [Right Arm] 02 Sat by Pulse Oximetry Oxygen Delivery Method Room Air Lab Data Lab results reviewed: Yes I reviewed the patient's lab results. Orders (Tests/Meds): ED MEDICATIONS Discontinued Medications Generic Name Dose Route Start Last Admin Trade Name Porfirio PRN Reason Stop Dose Admin Acetaminophen 1,000 mg 09/02/24 22:12 09/02/24 22:22 Acetaminophen 500mg Tab PO 09/02/24 22:13 1,000 mg ONCE ONE Administration Ibuprofen 800 mg 09/02/24 22:12 09/02/24 22:22 Ibuprofen 400 Mg Tablet PO 09/02/24 22:13 800 mg ONCE ONE Administration Lidocaine 1 each 09/02/24 22:16 09/02/24 22:23 Lidocaine 5% Transdermal Patch TP 09/02/24 22:17 1 each ONCE ONE Administration Methocarbamol 500 mg 09/02/24 22:13 09/02/24 22:22 Methocarbamol 500mg Tablet PO 09/02/24 22:14 500 mg ONCE ONE Administration Prednisone 40 mg 09/02/24 22:12 09/02/24 22:22 Prednisone 20mg Tab PO 09/02/24 22:13 40 mg ONCE ONE Administration Medical Decision Narrative: In summary, this patient is a 64-year-old female presenting to the Emergency Department for evaluation of atraumatic left arm pain that is been present for a month. Differential diagnoses considered include but are not limited to cervical radiculopathy, bicep tendinitis, de Quervain's tenosynovitis, other tendinitis, musculoskeletal strain/sprain. Ruling out the most morbid conditions drove assessment. It should be noted patient's history includes C-spine issues, CAD which may or may not be at goal therapy. This complicates all aspects of care by increasing patient's risk for morbidity. I reviewed patient's past medical records and noted previous evaluations for similar issues in the past and diagnosis of cervical radiculopathy. She notes that she was followed at [facility] for this but her symptoms were not improving so she stopped going. On exam, the patient is sitting upright in no acute distress. She has pain in her entire left arm is worse with movement. She is neurovascularly intact distally. 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 I discussed with her that we could obtain x-rays here to look at the bones, however I feel this is unlikely to be beneficial without acute traumatic injury. She is in agreement and does not want x-ray. She states that she wants the medicine and to go home. I gave her oral Tylenol, ibuprofen, Robaxin, prednisone, and a topical Lidoderm patch. At this time, patient was deemed to be appropriate for discharge via patient directed discharge that she is ready to go home. I feel she is appropriate for outpatient follow-up with orthopedics and primary care. Prescriptions for prednisone and Robaxin given instructions for supportive management given as well. Strict return precautions given at time of discharge Critical Care Critical Care Time Critical Care Time: No
== END 2024-09-02 22:34 | disposition home or self-care (01) ==
PROVIDERS: Emergency Provider Emergency Medicine; PCP Nurse Practitioner
DX: M79.602 Pain in left arm (principal)
CPT/HCPCS: 99283